=== PATIENT | male | born 1945 | race American Indian/Alaskan Native ===

== ENCOUNTER 2021-02-17 19:19 | Emergency (ER) | payer MEDICARE ==
[2021-02-17 20:34] LABS: Basophils % (Auto) 1.1 % (0.0-1.8); Eosinophils # (Auto) 0.3 K/mm3 (0.0-0.4); Eosinophils % (Auto) 7.9 % (0.0-4.3); Hematocrit 39.5 % (35.5-45.6); Hemoglobin 12.3 gm/dl (11.8-15.2); Lymphocytes # (Auto) 1.4 K/mm3 (1.2-5.4); Lymphocytes % (Auto) 36.2 % (13.4-35.0); Mean Corpuscular HGB Conc 31 % (32-34); Mean Corpuscular Volume 86 fl (84-94); Monocytes # (Auto) 0.4 K/mm3 (0.0-0.8); Monocytes % (Auto) 9.3 % (0.0-7.3); Platelet Count 191 K/mm3 (140-440); Red Blood Count 4.57 M/mm3 (3.65-5.03); Red Cell Distribution Width 13.3 % (13.2-15.2)
--- NOTE | 2021-02-17 20:36 | Event Note ---
ED Screening Note Date of service: 02/17/21 Time: 20:34 ED Screening Note: Patient is a 75-year-old -[place] male with a history of hypertension, [id number] diabetes and hyperlipidemia and with previous history of ventral hernia s/p repair with mesh presents to the ED with complaint of acute onset persistent severe left inguinal pain that radiates to the left perineal area for the last 2 days, worse in the last 12 hours. Patient states that the pain is worse with movement or when he exerts himself. Patient denies hematuria, testicular pain, penile discharge, dysuria, urinary frequency and urgency, fever, chills, nausea and vomiting or diarrhea or abdominal pain, trau matic injury or back pain and heavy lifting. This initial assessment/diagnostic orders/clinical plan/treatment(s) is/are subject to change based on patients health status, clinical progression and re- assessment by fellow clinical providers in the ED. Further treatment and workup at subsequent clinical providers discretion. Patient/guardian urged not to elope from the ED as their condition may be serious if not clinically assessed and managed. Initial orders include: CBC, CMP, UA, abdomen pelvis CT scan with contrast
--- NOTE | 2021-02-17 20:57 | Emergency Department Report ---
ED Male HPI - General Chief complaint: Abdominal Pain Stated complaint: PAIN IN GROIN AREA Time Seen by Provider: 02/17/21 20:38 Source: patient Mode of arrival: Ambulatory Limitations: No Limitations - History of Present Illness Initial comments: CC: I was crying in pain HPI: Jabari is a 75 yo male with hx of DVT, DM, HTN hernia x 3 surgeries, pro [place] cancer who presents with severe left groin pain for 1.5 weeks. THe pain became severe today. He has had 50 pound unintentional weight loss of 2 months. MD Complaint: groin pain -: Gradual, week(s) (1-1/2 weeks worse today) Location: left inguinal region Radiation: none Severity: severe Severity scale (0 -10): 10 Quality: sharp Consistency: intermittent Improves with: none Worsens with: none other (50 pound weight loss over the last 2 months) - Related Data Previous Rx's Medication Instructions Recorded Last Taken Type oxyCODONE /ACETAMINOPHEN [Percocet 1 tab PO Q6HR PRN #20 tablet 11/21/15 Unknown Rx 5/325 mg] Apixaban [Eliquis] 2 tab PO BID #28 tablet 03/28/18 Unknown Rx Apixaban [Eliquis] 5 mg PO BID #42 tablet 03/28/18 Unknown Rx Famotidine [Pepcid] 20 mg PO BID #30 tablet 03/28/18 Unknown Rx Zolpidem [Ambien] 5 mg PO QHS PRN #7 tablet 03/28/18 Unknown Rx lisinopriL [Zestril TAB] 20 mg PO QDAY #30 tablet 03/28/18 Unknown Rx HYDROcodone/APAP 5-325 [[place] 1 each PO Q6HR PRN #10 tablet 02/17/21 Unknown Rx 5/325] Allergies Allergy/AdvReac Type Severity Reaction Status Date / Time No Known Allergies Allergy Unverified 04/10/14 11:02 ED Review of Systems ROS: Stated complaint: PAIN IN GROIN AREA Other details as noted in HPI Comment: All other systems reviewed and negative Constitutional: denies: chills, fever, malaise Respiratory: denies: cough, shortness of breath Cardiovascular: denies: chest pain Gastrointestinal: denies: abdominal pain Genitourinary: denies: urgency, dysuria, frequency, testicular pain ED Past Medical Hx - Past Medical History Previous Medical History?: Yes Hx Hypertension: Yes Hx Diabetes: Yes Additional medical history: hyperlipidemia, DVT with coumadin therapy - Surgical History Past Surgical History?: Yes Additional Surgical History: umbilical hernia,prostate ca 2006 - Social History Smoking Status: Never Smoker - Medications Home Medications: Home Medications Medication Instructions Recorded Confirmed Last Taken Type oxyCODONE /ACETAMINOPHEN [Percocet 1 tab PO Q6HR PRN #20 tablet 11/20/16 03/27/18 Unknown Rx 5/325 mg] Apixaban [Eliquis] 2 tab PO BID #28 tablet 03/28/18 Unknown Rx Apixaban [Eliquis] 5 mg PO BID #42 tablet 03/28/18 Unknown Rx Famotidine [Pepcid] 20 mg PO BID #30 tablet 03/28/18 Unknown Rx Zolpidem [Ambien] 5 mg PO QHS PRN #7 tablet 03/28/18 Unknown Rx lisinopriL [Zestril TAB] 20 mg PO QDAY #30 tablet 03/28/18 Unknown Rx HYDROcodone/APAP 5-325 [[place] 1 each PO Q6HR PRN #10 tablet 02/17/21 Unknown Rx 5/325] ED Physical Exam - General Limitations: No Limitations General appearance: alert, in no apparent distress, cachectic, other (Steady n ormal gait appears comfortable) - Head Head exam: Present: atraumatic, normocephalic - Eye Eye exam: Present: normal appearance - ENT ENT exam: Present: mucous membranes moist - Neck Neck exam: Present: normal inspection - Respiratory Respiratory exam: Present: normal lung sounds bilaterally. Absent: respiratory distress, wheezes, rales, rhonchi - Cardiovascular Cardiovascular Exam: Present: regular rate, normal rhythm, normal heart sounds. Absent: systolic murmur, diastolic murmur, rubs, gallop - GI/Abdominal GI/Abdominal exam: Present: soft, normal bowel sounds. Absent: distended, tenderness, guarding, rebound - Rectal Rectal exam: Present: deferred - exam: Present: normal inspection, circumcision. Absent: testicular tenderness, urethral discharge, scrotal swelling, vertical testicular lie External exam: Absent: normal external exam, erythema, swelling, lesions, lacerations, bleeding - Extremities Exam Extremities exam: Present: normal inspection - Neurological Exam Neurological exam: Present: alert, oriented X3 - Psychiatric Psychiatric exam: Present: normal affect, normal mood - Skin Skin exam: Present: warm, dry, intact, normal color. Absent: rash ED Course Vital Signs 02/17/21 02/17/21 02/17/21 19:45 21:14 21:15 Temperature 98.2 F Pulse Rate 73 64 63 Respiratory 18 11 L 14 Rate Blood Pressure 177/88 O2 Sat by Pulse 98 99 98 Oximetry 02/17/21 02/17/21 21:29 21:31 Temperature Pulse Rate 60 Respiratory 21 Rate Blood Pressure O2 Sat by Pulse 96 96 Oximetry ED Medical Decision Making - Lab Data Result diagrams: 02/17/21 20:23 02/17/21 20:23 - Radiology Data Radiology results: report reviewed Patient Name: ALBA HURLEY Gender: Male Date of : 1945 Referring Provider: NILDA FISHER Organization: [facility] Accession Number: [id number] Requested Date: February 17, 2021 22:31 Report Status: Final Requested Procedure: 1 Procedure Description: CT abdomen pelvis w con Modality: CT Findings Reporting MD: Selwyn Reeves Dictation Time: February 17, 2021 21:41 [employer] Manager: Not available Communications Clerk Date: CT ABDOMEN AND PELVIS WITH CONTRAST HISTORY: Left inguinal pain. COMPARISON: None. TECHNIQUE: CT images of the abdomen and pelvis were obtained following administration of intravenous contrast. All CT scans at this location are performed using CT dose reduction for ALARA by means of automated exposure control. CONTRAST: 100 ml of intravenous contrast administered. FINDINGS: Lungs/bones: Lung bases are clear Abdomen/pelvis: Small hypodensity within the right hepatic lobe with peripheral area of enhancement. This area measures 1.1 cm. Kidneys appear normal. Spleen, adrenal glands, pancreas and gallbladder appear normal. There is thickening of the distal esophagus at the GE junction. Constipation seen throughout There is a slightly dilated or distended bowel loop within the right lower abdomen measuring 2.7 cm. Multiple surgical clips are seen in the right lower abdomen as well. There may be some wall thickening in this anais wel loop. No definite evidence for obstruction is seen. Diverticulosis within the colon. No large inguinal hernia is seen. No hydronephrosis is identified. Degenerative changes seen throughout spine IMPRESSION: 1. Areas of density along the anterior abdominal wall suggesting postsurgical change. There is a distended/mildly dilated bowel loop in the right lower abdomen however no evidence for obstruction is definitely seen at this time. Some mild enteritis could have this appearance with mild thickening. No free fluid in the abdomen or pelvis. 2. No inguinal hernia is identified. 3. Right liver lesion measuring 1.1 cm could represent a hemangioma however nonspecific. Follow-up ultrasound could be performed. Signer Name: Selwyn Reeves MD Signed: 02/17/2021 9:41 PM Workstation Name: [id number] - Medical Decision Making Right groin pain with 50 pound unintentional weight loss: No evidence of inguinal hernia on CT scan no obstruction. Differential diagnosis includes referred pain from arthritis, referred to primary care physician. Prescribed tramadol for pain. Critical care attestation.: If time is entered above; I have spent that time in minutes in the direct care of this critically ill patient, excluding procedure time. ED Disposition Clinical Impression: Left groin pain Disposition: 01 HOME / SELF CARE / HOMELESS Is pt being admited?: No Does the pt Need Aspirin: No Condition: Stable Prescriptions: HYDROcodone/APAP 5-325 [[place] 5/325] 1 each PO Q6HR PRN #10 tablet PRN Reason: Pain Referrals: KENDALL WHIPPLE MD [Primary Care Provider] - 3-5 Days
[2021-02-17 21:15] LABS: Alanine Aminotransferase 16 units/L (7-56); Albumin 4.2 g/dL (3.9-5); BUN/Creatinine Ratio 23; Blood Urea Nitrogen 23 mg/dL (9-20); Calcium 9.5 mg/dL (8.4-10.2); Hemolysis Index 10
[2021-02-17] MEDS ORDERED: ACETAMINOPHEN 500 MG TAB PO ONE (22:33)
[2021-02-17] MEDS ORDERED: IBUPROFEN 400 MG TAB PO ONE (22:33)
--- NOTE | 2021-02-17 22:46 | Cat Scan Report ---
CT ABDOMEN AND PELVIS WITH CONTRAST HISTORY: Left inguinal pain. COMPARISON: None. TECHNIQUE: CT images of the abdomen and pelvis were obtained following administration of intravenous contrast. All CT scans at this location are performed using CT dose reduction for ALARA by means of automated exposure control. CONTRAST: 100 ml of intravenous contrast administered. FINDINGS: Lungs/bones: Lung bases are clear Abdomen/pelvis: Small hypodensity within the right hepatic lobe with peripheral area of enhancement. This area measures 1.1 cm. Kidneys appear normal. Spleen, adrenal glands, pancreas and gallbladder a ppear normal. There is thickening of the distal esophagus at the GE junction. Constipation seen throu ghout There is a slightly dilated or distended bowel loop within the right lower abdomen measuring 2.7 cm. Multiple surgical clips are seen in the right lower abdomen as well. There may be some wall thickenin g in this bowel loop. No definite evidence for obstruction is seen. Diverticulosis within the colon. No large inguinal hernia is seen. No hydronephrosis is identified. Degenerative changes seen througho ut spine IMPRESSION: 1. Areas of density along the anterior abdominal wall suggesting postsurgical change. There is a dist ended/mildly dilated bowel loop in the right lower abdomen however no evidence for obstruction is def initely seen at this time. Some mild enteritis could have this appearance with mild thickening. No fr ee fluid in the abdomen or pelvis. 2. No inguinal hernia is identified. 3. Right liver lesion measuring 1.1 cm could represent a hemangioma however nonspecific. Follow-up ul trasound could be performed. Signer Name: Selwyn Reeves MD Signed: 02/17/2021 10:41 PM Workstation Name: [id number]
[2021-02-17 23:47] VITALS: BP 177/90
== END 2021-02-17 23:40 | disposition home or self-care (01) ==
LOC: ED 19:19
DX: R10.32 Left lower quadrant pain (principal); I10 Essential (primary) hypertension; E11.9 Type 2 diabetes mellitus without complications; Z98.890 Other specified postprocedural states; Z79.899 Other long term (current) drug therapy; Z79.01 Long term (current) use of anticoagulants
CPT/HCPCS: 36415; 74177; 80053; 85025; 99284; Q9967